=== PATIENT | female | born 1990 | race Two or more races ===

== ENCOUNTER 2021-03-14 18:01 | Emergency (ER) | payer OTHER ==
[2021-03-14 18:13] VITALS: BMI 34.9
[2021-03-14 20:52] LABS: BASO % 0.3 % (0-2.0); EOS % 1.7 % (0-4.5); HEMATOCRIT 40.4 % (32.4-45.2); HEMOGLOBIN 13.7 GM/dL (10.7-15.3); LYMPH % 34.4 % (8-40); MCH 29.8 pg (25.7-33.7); MCHC 33.8 g/dl (32.0-36.0); MEAN CELL VOLUME 88.2 fl (80-96); MEAN PLT VOLUME 7.7 fl (7.5-11.1); NEUT % 55.6 % (42.8-82.8); PLATELET COUNT 373 10^3/uL (134-434); RBC 4.58 M/mm3 (3.60-5.2); RDW 12.9 % (11.6-15.6); WHITE BLOOD COUNT 11.5 K/mm3 (4.0-10.0)
[2021-03-14 20:57] LABS: URINE APPEARANCE CLEAR; URINE BILIRUBIN NEGATIVE (NEGATIVE); URINE COLOR YELLOW; URINE GLUCOSE (UA) NEGATIVE (NEGATIVE); URINE KETONE NEGATIVE (NEGATIVE); URINE LEUK ESTERASE NEGATIVE (NEGATIVE); URINE NITRITE NEGATIVE (NEGATIVE); URINE PROTEIN NEGATIVE (NEGATIVE); URINE UROBILINOGEN 0.2 mg/dL (0.2-1.0)
[2021-03-14 21:06] LABS: CALCIUM 9.3 mg/dL (8.5-10.1)
[2021-03-14 21:08] LABS: BLOOD UREA NITROGEN 14.3 mg/dL (7-18)
[2021-03-14 21:11] LABS: CREATININE 0.7 mg/dL (0.55-1.3)
[2021-03-14 21:12] LABS: BILIRUBIN,TOTAL 0.2 mg/dL (0.2-1); TOT PROT 8.2 g/dl (6.4-8.2)
[2021-03-15 00:52] VITALS: BP 108/73; PULSE 68; TEMP 98.2
== END 2021-03-15 01:43 | disposition home or self-care (01) ==
LOC: JER 18:01
DX: R10.31 Right lower quadrant pain (principal)
CPT/HCPCS: 36415; 74176-TC; 76830-TC; 80053; 81003; 84703; 85025; 87086; 99285-25